=== PATIENT | female | born 1965 | race Caucasian/White ===

== ENCOUNTER 2020-05-16 08:28 | Emergency (ER) | payer OTHER, SELFPAY ==
[2020-05-16 08:37] VITALS: BP 123/83; PULSE 122; RESP 16; TEMP 36.6; O2SAT 100
--- NOTE | 2020-05-16 08:55 | ED.FEMALEGU ---
HPI - Female Genitourinary General Chief complaint: Urogenital-Female Stated complaint: Urogenital-Female Time Seen by Provider: 05/16/20 08:55 Source: patient and RN notes reviewed Mode of arrival: ambulatory Limitations: no limitations History of Present Illness HPI Narrative: 54year old female who presents to [facility] care with complaints of urinary burning, frequency, urgency and low back pain since yesterday.Patient states some suprapubic pressure feeling, and perineum irritation, denies any vaginal discharge or itching. Patient states that she has not taken any OTC medication for her symptoms, has increased water intake. Patient has tachycardia which she states has recently been to physician and had an Echocardiogram, and a 24 hour monitor with no abnormalities noted,stated her average heart rate was 94. MD elicited complaint: dysuria Pertinent past history: IUD and other (UTI but not recurrent) Onset (ago): day(s) (1) Location of symptoms: perineum, suprapubic and low back Severity: mild Severity scale (1-10): 3 Quality of pain: burning and aching Consistency: constant Vaginal discharge: none Vaginal bleeding: none Urinary symptoms: Dysuria, Urgency and Frequency Exacerbating factors: urination Relieving factors: none Associated symptoms: denies other symptoms Treatment prior to arrival: none Sexual activity: Yes Patient : No Related Data Home Medications Medication Instructions Recorded Confirmed amitriptyline 50 mg PO HS 05/16/20 05/16/20 pantoprazole 40 mg PO HS 05/16/20 05/16/20 Allergies Allergy/AdvReac Type Severity Reaction Status Date / Time No Known Allergies Allergy Verified 05/16/20 08:52 Review of Systems Review of Systems: Narrative: CONSTITUTIONAL: Denies fever, chills, or sweats. EYES: Denies visual changes, redness, or discharge. ENT: Denies rhinorrhea, congestion, sore throat, or otalgia. CARDIOVASCULAR: Denies chest pain, palpitations, or edema. RESPIRATORY: Denies cough or dyspnea. GASTROINTESTINAL: reports supra pubic abdominal pressure,no nausea, vomiting, or diarrhea. GENITOURINARY: Positive dysuria no visible hematuria. SKIN: Denies rash or itching. MUSCULOSKELETAL: Positive for lower back pain,no joint pain, or myalgia. NEUROLOGIC: Denies headache, numbness, or weakness. PSYCHIATRIC: Denies anxiety or depression. All systems reviewed & are unremarkable except as noted in HPI and below PMFSH Past Medical History Medical History (Updated 05/16/20 @ 10:25 by Leonor Wylie NP) GERD (gastroesophageal reflux disease) Hx of esophageal spasm Surgical History Surgical History (Updated 05/16/20 @ 10:26 by Leonor Wylie NP) H/O bilateral breast reduction surgery History of wisdom tooth extraction, class II edentulism Family History Family History (Updated 05/16/20 @ 10:26 by Leonor Wylie NP) Mother Hypertension Father Diabetes mellitus Grandparent Cerebrovascular accident Social History Social History (Updated 05/16/20 @ 10:27 by Leonor Wylie NP) Smoking status: Never smoker Second hand tobacco smoke exposure: No Alcohol intake: never Substance use: never Living arrangements: with family Gender identity (if verbalized by the patient): Female Comments At time of signature, agree with nursing past medical, surgical, social and family history. There is no relevant family history pertinent to the presenting complaint Exam Narrative: Exam Narrative: GENERAL: Well-appearing, well-nourished, and in no acute distress. HEAD: Normocephalic, atraumatic. EYES: PERRLA and EOMI. ENT: Nares clear, no rhinorrhea or epistaxis. Mucous membranes moist. NECK: Supple.no lymphadenopathy CHEST: Clear to auscultation. No respiratory distress.SAO2 100% on room air HEART: Tachy rate and rhythm. No murmur heard. Normal peripheral pulses.denies any palpitations or dyspnea ABDOMEN: Soft, nontender, nondistended, normal active bowel sounds.Negative [place]
== END 2020-05-16 09:13 | disposition home or self-care (01) ==
PROVIDERS: Emergency Provider Registered Nurse
DX: N39.0 Urinary tract infection, site not specified (principal); K21.9 Gastro-esophageal reflux disease without esophagitis
CPT/HCPCS: 81003; 87077; 87086; 87088; 87186; 99203; G0463

== ENCOUNTER 2021-03-06 12:54 | Emergency (ER) | payer OTHER, SELFPAY ==
[2021-03-06 13:01] VITALS: BP 141/87; PULSE 112; RESP 14; TEMP 36.3; O2SAT 100
[2021-03-06 13:08] VITALS: BP 141/87; PULSE 112; RESP 14; TEMP 36.3; O2SAT 100
--- NOTE | 2021-03-06 13:24 | ED.FEMALEGU ---
HPI - Female Genitourinary General Chief complaint: Urogenital-Female Stated complaint: Urinary Problem Time Seen by Provider: 03/06/21 13:25 Source: patient and RN notes reviewed Mode of arrival: ambulatory Limitations: no limitations History of Present Illness HPI Narrative: 55-year-old female presents with concern for burning with urination, urgency and frequency, lower back pain. She reports suprapubic pressure. She denies abnormal vaginal bleeding, discharge. She denies fever, nausea, vomiting. Reports mild body aches. MD elicited complaint: UTI Related Data Home Medications Medication Instructions Recorded Confirmed amitriptyline 50 mg PO HS 05/16/20 03/06/21 pantoprazole 40 mg PO HS 05/16/20 03/06/21 cholecalciferol (vitamin D3) 50 mcg PO DAILY 03/06/21 03/06/21 [Vitamin D3] omega 7-goh-iun-fish oil [Fish Oil] 1 cap PO DAILY 03/06/21 03/06/21 Allergies Allergy/AdvReac Type Severity Reaction Status Date / Time No Known Allergies Allergy Verified 03/06/21 13:08 Review of Systems Review of Systems: CONSTITUTIONAL: Denies malaise, chills, sweats, or fever. GASTROINTESTINAL: Denies abdominal pain, nausea, vomiting, diarrhea. Reports suprapubic pressure GENITOURINARY: Reports urgency, frequency, dysuria. Denies flank pain or hematuria. SKIN: Denies rash or itching. MUSCULOSKELETAL: Reports mild low back pain. Reports mild myalgia. NEUROLOGIC: Denies numbness, weakness All systems reviewed & are unremarkable except as noted in HPI and below PMFSH Past Medical History Medical History (Updated 03/06/21 @ 13:31 by Nano Avila NP) GERD (gastroesophageal reflux disease) Hx of esophageal spasm Surgical History Surgical History (Updated 05/16/20 @ 10:26 by Leonor Wylie NP) H/O bilateral breast reduction surgery History of wisdom tooth extraction, class II edentulism Family History Family History (Updated 05/16/20 @ 10:26 by Leonor Wylie NP) Mother Hypertension Father Diabetes mellitus Grandparent Cerebrovascular accident Social History Social History (Updated 05/16/20 @ 10:27 by Leonor Wylie NP) Smoking status: Never smoker Second hand tobacco smoke exposure: No Alcohol intake: never Substance use: never Gender identity (if verbalized by the patient): Female Comments At time of signature, agree with nursing past medical, surgical, social and family history. There is no relevant family history pertinent to the presenting complaint Exam Narrative: GENERAL: Well-appearing, well-nourished, and in no acute distress. HEAD: Normocephalic. EYES: PERRLA, conjunctivae clear. NECK: Supple. No lymphadenopathy CHEST: Clear to auscultation. No respiratory distress. HEART: Regular rate and rhythm. ABDOMEN: Soft, nontender upon palpation, nondistended, normal active bowel sounds, no palpable or pulsatile masses, no guarding. No CVA tenderness SKIN: Warm, dry, no rash. NEURO: Alert and oriented x3. PSYCH: Normal mood and affect Course Course Emergency Course: Patient is aware of diagnosis, understands and agrees to treatment plan. Anticipatory guidance given. Patient agrees to follow-up as directed and is aware of reasons to seek care at the emergency department. Portions of this record may have been created with voice recognition software Vital Signs Vital signs: Vital Signs Temperature 97.4 F L 03/06/21 13:01 Pulse Rate 112 H 03/06/21 13:01 Respiratory Rate 14 03/06/21 13:01 Blood Pressure 141/87 H 03/06/21 13:01 Pulse Oximetry 100 03/06/21 13:01 Temperature 97.4 F L 03/06/21 13:08 Pulse Rate 112 H 03/06/21 13:08 Respiratory Rate 14 03/06/21 13:08 Blood Pressure 141/87 H 03/06/21 13:08 Pulse Oximetry 100 03/06/21 13:08 Reviewed. MDM - Female Genitourinary MDM Narrative Medical decision making narrative: Exam findings and UA show no acute concerns or changes; patient is non-toxic appearing and is in no distress. Patient
== END 2021-03-06 13:39 | disposition home or self-care (01) ==
PROVIDERS: Emergency Provider Nurse Practitioner
DX: N39.0 Urinary tract infection, site not specified (principal); K21.9 Gastro-esophageal reflux disease without esophagitis
CPT/HCPCS: 81003; 87077; 87086; 87088; 99213; G0463

== ENCOUNTER 2021-04-08 13:35 | Emergency (ER) | payer OTHER, SELFPAY ==
--- NOTE | ~2021-04-08 | XR_ITS ---
EXAMINATION: XR chest 2V EXAM DATE: 04/08/2021 14:02 INDICATION: Midsternal chest pain. History of reflux. TECHNIQUE: Frontal and lateral projections of the chest obtained and reviewed. There is no prior anca dy for comparison. FINDINGS: The lungs are clear. There are no pleural effusions. The cardiomediastinal silhouette is within normal limits. There is no pneumothorax suspected. The bones and soft tissues are unremarkab le. IMPRESSION: No acute cardiopulmonary findings. Reviewed, dictated and finalized at location A. TOP OPERATOR
[2021-04-08 13:37] VITALS: BP 138/95; PULSE 116; RESP 20; TEMP 36.3; O2SAT 100
--- NOTE | 2021-04-08 13:41 | ECG_ITS ---
Measurements Intervals [place] Rate: 115 P: 54 CA: 137 QRS: 6 QRSD: 84 T: 50 QT: 315 QTc: 437 Interpretive Statements SINUS TACHYCARDIA INCOMPLETE RIGHT BUNDLE BRANCH BLOCK ABNORMAL ECG Electronically Signed On 04-08-2021 13:47:23 [employer] by Ta Bauer D.O.
[2021-04-08 14:01] LABS: Basophils Percent Auto 0.6 % (0.2-1.2); Eosinophils Absolute Auto 0.3 K/mm3 (0-0.3); Eosinophils Percent Auto 4.3 % (0-4.4); Hematocrit 40.8 % (37.0-47.0); Hemoglobin 13.9 g/dL (12.0-15.0); Immature Granulocyte Absolute 0.02 K/mm3 (0.00-0.031); Immature Granulocyte Percent A 0.3 % (0-0.5); Lymphocytes Absolute Auto 2.02 K/mm3 (0.9-3.2); Lymphocytes Percent Auto 32.4 % (18.3-44.2); Mean Corpuscular HGB Conc 34.1 g/dl (32-36); Mean Corpuscular Hemoglobin 29.8 pg (26-34); Mean Corpuscular Volume 87.6 fl (80-100); Mean Platelet Volume 9.9 fl (7.4-10.4); Monocytes Absolute Auto 0.4 K/mm3 (0.1-0.6); Monocytes Percent Auto 6.9 % (2.6-8.5); Neutrophils Absolute Auto 3.5 K/mm3 (1.3-6.7); Neutrophils Percent Auto 55.5 % (45.5-73.1); Platelet Count Result 286 k/mm3 (150-375); Red Blood Count 4.66 M/mm3 (4.2-5.4); Red Cell Distribution Width 12.7 % (11.5-14.5); White Blood Count 6.2 K/mm3 (4.5-10.0)
[2021-04-08 14:10] LABS: INR 0.9; Prothrombin Time 12.3 Seconds (11.1-14.7)
[2021-04-08 14:11] LABS: Partial Thromboplastin Time 26.8 SECONDS (22.3-36.8)
[2021-04-08 14:13] LABS: Alanine Aminotransferase 74 U/L (4-35); Alkaline Phosphatase 96 U/L (38-126); Anion Gap 9 mmol/L (8-16); Aspartate Amino Transferase 48 U/L (14-36); Bilirubin,Total 0.8 mg/dL (0.2-1.3); Blood Urea Nitrogen 10 mg/dL (7-17); Calcium 9.7 mg/dL (8.4-10.2); Carbon Dioxide 26 mmol/L (22-30); Chloride 102 mmol/L (98-107); Estimated CRCL calculation 67 ml/min; Estimated Glomerular Filt Rate > 60; Glucose 121 mg/dL (65-110); Lipase 189 U/L (23-300); Potassium 4.2 mmol/L (3.4-5.0); Sodium 137 mmol/L (137-145)
[2021-04-08 14:24] LABS: Troponin I < 0.012 ng/mL (0.000-0.034)
[2021-04-08 17:06] VITALS: BP 146/91; PULSE 108; RESP 12; O2SAT 100
[2021-04-08 17:08] VITALS: PULSE 108
--- NOTE | 2021-04-08 17:09 | ED.CHESTPAIN ---
HPI - Chest Pain General Chief Complaint: Chest Pain Stated Complaint: Chest Pain Time Seen by Provider: 04/08/21 17:04 Source: patient, RN notes reviewed and old records reviewed Mode of arrival: ambulatory Limitations: no limitations History of Present Illness HPI narrative: This is a 55 year old female with history of GERD, anxiety who presents for evaluation of chest pain. Patient states she has been having intermittent chest tightness for a week. She is almost certain that is anxiety or GERD. She was seen by her PCP on Tuesday and she told them she was anxious. She was having some chest pain at that time. She reports her pain is intermittent and it does not seem to worsen with inspiration, eating or inspiration. She just was becoming more anxious about the pain so she came in for evaluation. She has had similar pain multiple times in the past in which she has had evaluation. She reports having Holter monitor and ECHO for evaluation. Related Data Home Medications Medication Instructions Recorded Confirmed amitriptyline 50 mg PO HS 05/16/20 03/06/21 pantoprazole 40 mg PO HS 05/16/20 03/06/21 cholecalciferol (vitamin D3) 50 mcg PO DAILY 03/06/21 03/06/21 [Vitamin D3] omega 4-chc-lkz-fish oil [Fish Oil] 1 cap PO DAILY 03/06/21 03/06/21 Allergies Allergy/AdvReac Type Severity Reaction Status Date / Time No Known Allergies Allergy Verified 04/08/21 17:08 Review of Systems Review of Systems: All systems reviewed & are unremarkable except as noted in HPI and below PMFSH Past Medical History Medical History (Updated 04/08/21 @ 18:04 by Enriqueta Diaz MD) GERD (gastroesophageal reflux disease) Hx of esophageal spasm Surgical History Surgical History (Updated 05/16/20 @ 10:26 by Leonor Wylie NP) H/O bilateral breast reduction surgery History of wisdom tooth extraction, class II edentulism Family History Family History (Updated 05/16/20 @ 10:26 by Leonor Wylie NP) Mother Hypertension Father Diabetes mellitus Grandparent Cerebrovascular accident Social History Social History (Updated 05/16/20 @ 10:27 by Leonor Wylie NP) Smoking status: Never smoker Second hand tobacco smoke exposure: No Alcohol intake: never Substance use: never Gender identity (if verbalized by the patient): Female Exam Const: General: no acute distress and alert Orientation/consciousness: patient oriented x3 Eyes: EOM: EOMs intact bilaterally Resp: Effort & Inspection: normal respiratory effort and no retractions Auscultation: clear to auscultation bilaterally Cardio: Rate: regular rate Rhythm: regular rhythm Heart sounds: no murmurs GI: GI Palp: Yes Soft to palpation, No Tenderness to palpation present (GI) and No Guarding due to palpation present (GI) Auscultation: normal bowel sounds Back/Spine/Pelvis: Back: no CVA tenderness Skin: General skin exam: normal color Rashes: no rashes Neuro: General: patient oriented x3, moves all extremities and CN's II-XI intact bilaterally Extrem: General: normal to inspection Psych: Mental Status: mental status grossly normal Affect: normal affect Course Reevaluation(s) Reevaluation #1: I Discussed labs are unremarkable. She is low risk according to heart score. She will call PCP regarding today's visit to discuss anxiety and BP. Date: 04/08/21 Time: 18:01 Vital Signs Vital signs: Vital Signs Temperature 97.4 F L 04/08/21 13:37 Pulse Rate 116 H 04/08/21 13:37 Respiratory Rate 20 04/08/21 13:37 Blood Pressure 138/95 H 04/08/21 13:37 Pulse Oximetry 100 04/08/21 13:37 Temperature 97.4 F L 04/08/21 13:37 Pulse Rate 104 H 04/08/21 18:09 Respiratory Rate 14 04/08/21 18:09 Blood Pressure 135/96 H 04/08/21 18:09 Pulse Oximetry 99 04/08/21 18:09 MDM - Chest Pain Medical Records Data Attestation: I reviewed the patient's medical records. Lab Data Attestation: I reviewed the patient's la
[2021-04-08] MEDS: LORazepam (*CRX) 0.5 MG TABLET PO (17:16)
[2021-04-08 17:17] VITALS: BP 131/92; PULSE 112; RESP 16; O2SAT 100
[2021-04-08 17:43] LABS: Troponin I < 0.012 ng/mL (0.000-0.034)
[2021-04-08 17:49] LABS: D Dimer 0.34 ug/mL (<0.48)
[2021-04-08 18:09] VITALS: BP 135/96; PULSE 104; RESP 14; O2SAT 99
== END 2021-04-08 18:10 | disposition home or self-care (01) ==
PROVIDERS: Emergency Medicine; Emergency Provider General Practice
DX: R07.89 Other chest pain (principal); K21.9 Gastro-esophageal reflux disease without esophagitis; R00.0 Tachycardia, unspecified; I45.10 Unspecified right bundle-branch block
CPT/HCPCS: 36415; 71046; 80053; 83690; 84484; 85025; 85380; 85610; 85730; 93005; 99284; A9270

== ENCOUNTER 2022-03-30 14:13 | Emergency (ER) | payer OTHER, SELFPAY ==
--- NOTE | 2022-03-30 14:16 | ED.SKABFB ---
HPI - Skin/Abscess/Foreign Bdy General Chief complaint: Skin/Abscess/Foreign Body Stated complaint: some bumps on arms Time Seen by Provider: 03/30/22 14:16 Source: patient and RN notes reviewed History of Present Illness HPI narrative: Patient is a 56-year-old female who presents to the Urgent Care with complaints of bumps to bilateral forearms. Patient states that her kids have had scabies and been fighting it for the last several weeks. Patient states she is not treated herself for the areas. States she does notice some last night. No other acute complaints. No acute distress noted. Patient aware of the plan of care. Some parts of this dictation were generated by voice recognition software and may contain typographical and/or grammatical inaccuracies. Related Data Home Medications Medication Instructions Recorded Confirmed amitriptyline 50 mg tablet 50 mg PO HS 05/16/20 03/06/21 pantoprazole 40 mg tablet,delayed 40 mg PO HS 05/16/20 03/06/21 release cholecalciferol (vitamin D3) 50 50 mcg PO DAILY 03/06/21 03/06/21 mcg (2,000 unit) capsule (Vitamin D3) omega 0-mrw-uwg-fish oil 138 1 cap PO DAILY 03/06/21 03/06/21 mg-183 mg-1,000 mg capsule amlodipine 5 mg tablet mg 03/30/22 metformin 500 mg tablet,extended mg PO 03/30/22 release 24 hr rosuvastatin 10 mg tablet mg 03/30/22 Allergies Allergy/AdvReac Type Severity Reaction Status Date / Time No Known Allergies Allergy Verified 04/08/21 17:08 Review of Systems Review of Systems: CONSTITUTIONAL: Denies fever, chills, or sweats. EYES: Denies visual changes, redness, or discharge. ENT: Denies rhinorrhea, congestion, sore throat, or otalgia. CARDIOVASCULAR: Denies chest pain, palpitations, or edema. RESPIRATORY: Denies cough or dyspnea. GASTROINTESTINAL: Denies abdominal pain, nausea, vomiting, or diarrhea. GENITOURINARY: Denies dysuria or hematuria. SKIN: Reports of possible scabies bilateral forearms MUSCULOSKELETAL: Denies back pain, joint pain, or myalgia. NEUROLOGIC: Denies headache, numbness, or weakness. All other systems reviewed are negative, except as documented in HPI. [facility] Past Medical History Medical History (Updated 03/30/22 @ 14:42 by JOSÉ ANTONIO Desai) GERD (gastroesophageal reflux disease) Hx of esophageal spasm Surgical History Surgical History (Updated 05/16/20 @ 10:26 by Leonor Wylie NP) H/O bilateral breast reduction surgery History of wisdom tooth extraction, class II edentulism Family History Family History (Updated 05/16/20 @ 10:26 by Leonor Wylie NP) Mother Hypertension Father Diabetes mellitus Grandparent Cerebrovascular accident Social History Social History (Updated 05/16/20 @ 10:27 by Leonor Wylie NP) Smoking status: Never smoker Second hand tobacco smoke exposure: No Alcohol intake: never Substance use: never Gender identity (if verbalized by the patient): Female Comments At the time of my signature, I reviewed and agree with the nursing past medical, surgical, social, and family history. There is no relevant family history pertinent to the patient complaint. Exam Narrative: GENERAL: This is a well-nourished, well-developed patient, in no apparent distress. HEAD: normocephalic, atraumatic. EYES: PERRL. Sclera clear/white. Vision is grossly intact. EARS: External ears normal NOSE: External nose normal with no obvious nasal discharge, nares without redness, no rhinorrhea. THROAT: Mucous membranes moist NECK: Neck supple SKIN: linear stretch of raised scabbed pinpoint dermatitis, consistent with scabies to bilateral forearms.warm, intact with no suspicious lesions or rash, good texture and turgor. NEURO: awake, alert, and oriented to person, place and time. There were no obvious focal neurologic abnormalities. EXTREMITIES: No clubbing, cyanosis, or edema. Course Course Level of Care: Express Care Visit Vital Signs Vital signs: Vital Signs Temp
[2022-03-30 14:21] VITALS: BP 141/91; PULSE 123; RESP 18; TEMP 36.8; O2SAT 100
[2022-03-30 14:22] VITALS: BP 141/91; PULSE 123; RESP 18; TEMP 36.8; O2SAT 100
== END 2022-03-30 14:50 | disposition home or self-care (01) ==
PROVIDERS: Emergency Provider Nurse Practitioner Family
DX: B86 Scabies (principal)
CPT/HCPCS: 99213; G0463